=== PATIENT | male | born 1955 | race Caucasian/White ===

== ENCOUNTER → 2016-10-30 | Outpatient (CLI) | payer BC ==
[~2016-10-30] MED LIST: AMLO10TA2 PO; ASCO10004 PO; ATOR10TA9 PO; B CO PO; CA C1TAB62 PO; CELE200C PO; CHOL10003 PO; DOCU100C PO; GING550C PO; GINK120C PO; GLUC-121 PO; HYDR25TA6 PO; KRIL1CAP5 PO; MULT-257 PO; Potassium PO; TRAM50TA2 PO; TURM500C7 PO; UBID30CA9 PO; VALS320T2 PO; blackseed oil PO
[2016-10-30 09:39] LABS: ASPARTATE AMINO TRANSFERASE 19 U/L (15-37); BLOOD UREA NITROGEN 25 mg/dL (7-18)
== END | disposition home or self-care (01) ==
LOC: STAR 08:23 → MERGE 08:30
PROVIDERS: ATTEND Specialist
DX: Z01.818 Encounter for other preprocedural examination (principal); C91.40 Hairy cell leukemia not having achieved remission; J32.2 Chronic ethmoidal sinusitis; J34.2 Deviated nasal septum; J32.0 Chronic maxillary sinusitis
CPT/HCPCS: 36415; 80053; 85025; 93005

== ENCOUNTER 2016-11-04 13:54 | Day surgery (SDC) | payer BC ==
[~2016-11-04] VITALS: Ht 185.4 cm; Wt 130.0 kg
[2016-11-04] MEDS ORDERED: COCAINE TOPICAL SOLN 4%, 4ML ONE ×2 (14:04→15:38)
[2016-11-04] MEDS ORDERED: SODIUM CHLORIDE 0.9% 1,000 ML IV SCH (14:30)
[2016-11-04 14:57] VITALS: BP 130/80
[2016-11-04] MEDS ORDERED: REMIFENTANIL 2 MG ONE (15:05)
[2016-11-04 15:14] VITALS: BP 130/80
[2016-11-04 15:30] VITALS: BP 123/77
[2016-11-04] MEDS ORDERED: LABETALOL 5MG/ML, 20ML ONE (15:32)
[2016-11-04] MEDS ORDERED: ONDANSETRON 2MG/ML, 2ML ONE (15:32)
[2016-11-04] MEDS ORDERED: DEXAMETHASONE 4 MG/ML, 1ML ONE (15:32)
[2016-11-04] MEDS ORDERED: SUCCINYLCHOLINE 20 MG/ML, 10ML ONE (15:32)
[2016-11-04] MEDS ORDERED: PROPOFOL 10 MG/ML, 20ML ONE (15:32)
[2016-11-04] MEDS ORDERED: PROPOFOL 10 MG/ML, 50ML ONE (15:32)
[2016-11-04] MEDS ORDERED: PHENYLEPHRINE 10 MG/ML ONE (15:32)
[2016-11-04] MEDS ORDERED: CEFAZOLIN 1,000 MG ONE (15:32)
[2016-11-04] MEDS ORDERED: LIDOCAINE/PF 1.5%-EPI 1:200K, 30ML ONE (15:37)
[2016-11-04] MEDS ORDERED: EPINEPHRINE 1 MG/ML, 1ML ONE (15:39)
[2016-11-04] MEDS ORDERED: LIDOCAINE/PF 1%, 30ML ONE (15:39)
[2016-11-04] MEDS ORDERED: ONDANSETRON 2MG/ML, 2ML IVPush PRN (16:30)
[2016-11-04] MEDS ORDERED: MEPERIDINE/PF 25MG/0.5ML IVPush PRN (16:30)
[2016-11-04] MEDS ORDERED: hydrALAzine 20 MG/ML, 1ML IV PRN (16:30)
[2016-11-04] MEDS ORDERED: OXYcodone 5 MG/5 ML ORAL.SOL UDC PO PRN (16:30)
[2016-11-04] MEDS ORDERED: ACETAMINOPHEN 325 MG TABLET PO PRN (16:30)
[2016-11-04] MEDS ORDERED: HYDROcodone/APAP 7.5-325MG/15ML UDC PO PRN (16:30)
[2016-11-04] MEDS ORDERED: PROMETHAZINE 25 MG/ML, 1ML IV PRN (16:30)
[2016-11-04] MEDS ORDERED: EPHEDRINE 50 MG/ML, 1ML IVPush PRN (16:30)
[2016-11-04] MEDS ORDERED: MIDAZOLAM 1 MG/ML, 2ML IV PRN (16:30)
[2016-11-04] MEDS ORDERED: REMIFENTANIL 1 MG ONE (16:44)
[2016-11-04] MEDS ORDERED: NEO/BACI/POLY/HC OINT 15GM ONE (17:18)
[2016-11-04] MEDS ORDERED: OXYcodone 5 MG/5 ML ORAL.SOL UDC ONE (17:48)
[2016-11-04] MEDS ORDERED: FENTANYL PF 100 MCG/2ML ONE (17:48)
[2016-11-04] MEDS: FENTANYL PF 100 MCG/2ML IV PRN ×2 (17:51→18:03)
[2016-11-04] MEDS: LABETALOL 5MG/ML, 20ML IV PRN ×2 (18:05→18:23)
[2016-11-04] MEDS ORDERED: HYDROmorphone 1 MG/ML, 1ML ONE (18:12)
[2016-11-04] MEDS: HYDROmorphone 1 MG/ML, 1ML IV PRN ×2 (18:14→18:24)
== END 2016-11-04 20:05 ==
LOC: OR 13:54
PROVIDERS: ATTEND Specialist
DX: J34.2 Deviated nasal septum (principal); J32.2 Chronic ethmoidal sinusitis; J32.0 Chronic maxillary sinusitis; J32.9 Chronic sinusitis, unspecified
CPT/HCPCS: 30520; 31255; 31256; 31276; 31287; 36415; 82962; 86850; 86900; 88304; J0330; J0690; J1100; J1170; J2250; J2370; J2405; J2704; J3010; J7030; P9035; S1090; J0171; J3490

== ENCOUNTER 2016-12-11 10:07 | Inpatient (IN) | payer BC ==
[~2016-12-11] VITALS: Ht 185.4 cm; Wt 126.7 kg
[2016-12-11 12:20] LABS: HEMOGLOBIN 11.8 g/dL (13.7-18.0)
[2016-12-11 12:26] LABS: BLOOD UREA NITROGEN 23 mg/dL (7-18)
[2016-12-11 12:34] LABS: IS PT STATUS REG ER OR PRE ER? YES
[2016-12-11 13:03] LABS: DIFF TOTAL CELLS COUNTED 100 CELL DIFF
[2016-12-11 13:08] LABS: WHITE BLOOD COUNT 1.8 x10^3/uL (3.4-10)
[2016-12-11 13:18] LABS: VERIFY COUNTS? YES
[2016-12-11] MEDS ORDERED: CEFTRIAXONE 1,000 MG ONE (13:21)
[2016-12-11] MEDS ORDERED: AZITHROMYCIN 500 MG in SODIUM CHLORIDE 0.9% 250 ML IV ONE (13:30)
[2016-12-11] MEDS ORDERED: SODIUM CHLORIDE 0.9% 1,000ML IVBOLUS ONE (13:30)
[2016-12-11] MEDS ORDERED: CEFTRIAXONE 1,000 MG IM ONE (13:30)
[2016-12-11] MEDS ORDERED: ONDANSETRON 2MG/ML, 2ML IVPush PRN (15:30)
[2016-12-11] MEDS ORDERED: LABETALOL 5MG/ML, 20ML IVPush PRN (15:30)
[2016-12-11] MEDS ORDERED: ENALAPRILAT 1.25 MG/ML, 2ML IVPush PRN (15:30)
[2016-12-11] MEDS ORDERED: ONDANSETRON ODT 4 MG PO PRN (15:30)
[2016-12-11] MEDS ORDERED: ENOXAPARIN 40 MG/0.4 ML SQ SCH (15:30)
[2016-12-11 15:31] VITALS: BP 132/72
[2016-12-11] MEDS ORDERED: DEXTROSE 4 GM TAB.CHEW PO PRN (16:00)
[2016-12-11] MEDS ORDERED: DEXTROSE 50%, 50ML SYRINGE IVPush PRN (16:00)
[2016-12-11] MEDS ORDERED: GLUCAGON 1 MG IM PRN (16:00)
[2016-12-11] MEDS: CEFTRIAXONE PMX 1GM/50ML 50 ML IV SCH (16:34)
[2016-12-11] MEDS: SODIUM CHLORIDE 0.9% 1,000 ML IV SCH (16:34)
[2016-12-11] MEDS: INSULIN ASPART 100 UNITS/ML, PEN SQ-INSULIN SCH ×2 (18:16→21:35)
[2016-12-11 19:31] VITALS: BP 131/78
[2016-12-11] MEDS: SODIUM CHLORIDE FLUSH 10ML SYR IVF SCH (21:36)
[2016-12-12] MEDS: SODIUM CHLORIDE 0.9% 1,000 ML IV SCH ×3 (02:22→23:32)
[2016-12-12 02:23] VITALS: BP 135/81
[2016-12-12 05:23] LABS: HEMATOCRIT 32.9 % (39.2-51.8)
[2016-12-12 05:25] LABS: BLOOD UREA NITROGEN 18 mg/dL (7-18)
[2016-12-12 05:29] LABS: ASPARTATE AMINO TRANSFERASE 39 U/L (15-37)
[2016-12-12 06:01] LABS: WHITE BLOOD COUNT 1.8 x10^3/uL (3.4-10)
[2016-12-12 06:15] VITALS: BP 134/70
[2016-12-12] MEDS: INSULIN ASPART 100 UNITS/ML, PEN SQ-INSULIN SCH ×4 (07:46→20:18)
[2016-12-12] MEDS: SODIUM CHLORIDE FLUSH 10ML SYR IVF SCH ×2 (08:32→20:18)
[2016-12-12 13:30] VITALS: BP 143/80
[2016-12-12] MEDS: AZITHROMYCIN 500 MG in SODIUM CHLORIDE 0.9% 250 ML IV SCH (13:50)
[2016-12-12] MEDS: CEFTRIAXONE PMX 1GM/50ML 50 ML IV SCH (15:39)
[2016-12-12 19:28] VITALS: BP 156/74
[2016-12-12] MEDS: ACETAMINOPHEN 325 MG TABLET PO PRN (20:12)
[2016-12-13 01:56] VITALS: BP 138/79
[2016-12-13] MEDS: INSULIN ASPART 100 UNITS/ML, PEN SQ-INSULIN SCH ×4 (07:18→21:00)
[2016-12-13] MEDS: SODIUM CHLORIDE 0.9% 1,000 ML IV SCH ×2 (08:42→20:00)
[2016-12-13] MEDS: SODIUM CHLORIDE FLUSH 10ML SYR IVF SCH ×2 (08:43→21:00)
[2016-12-13 08:45] VITALS: BP 146/72
[2016-12-13] MEDS: ACETAMINOPHEN 325 MG TABLET PO PRN (09:58)
[2016-12-13] MEDS ORDERED: ALBUTEROL SULFATE 2.5 MG/3 ML NPPB PRN (11:30)
[2016-12-13] MEDS: AZITHROMYCIN 500 MG in SODIUM CHLORIDE 0.9% 250 ML IV SCH (13:46)
[2016-12-13 14:02] VITALS: BP 146/69
[2016-12-13 14:14] LABS: HEMOGLOBIN 10.5 g/dL (13.7-18.0)
[2016-12-13 14:20] LABS: WHITE BLOOD COUNT 1.3 x10^3/uL (3.4-10)
[2016-12-13] MEDS: CEFTRIAXONE PMX 1GM/50ML 50 ML IV SCH (16:08)
[2016-12-13 19:37] VITALS: BP 156/79
[2016-12-13] MEDS: ALBUTEROL SULFATE 2.5 MG/3 ML NPPB PRN (19:46)
[2016-12-13] MEDS ORDERED: DEXTROSE 4 GM TAB.CHEW PO PRN (20:00)
[2016-12-13] MEDS ORDERED: DEXTROSE 50%, 50ML SYRINGE IVPush PRN (20:00)
[2016-12-13] MEDS ORDERED: ONDANSETRON 2MG/ML, 2ML IVPush PRN (20:00)
[2016-12-13] MEDS ORDERED: ENALAPRILAT 1.25 MG/ML, 2ML IVPush PRN (20:00)
[2016-12-13] MEDS ORDERED: LABETALOL 5MG/ML, 20ML IVPush PRN (20:00)
[2016-12-13] MEDS ORDERED: GLUCAGON 1 MG IM PRN (20:00)
[2016-12-14 01:32] VITALS: BP 145/84
[2016-12-14] MEDS: SODIUM CHLORIDE 0.9% 1,000 ML IV SCH ×2 (05:29→16:00)
[2016-12-14 06:45] VITALS: BP 149/78
[2016-12-14] MEDS: INSULIN ASPART 100 UNITS/ML, PEN SQ-INSULIN SCH ×4 (07:35→20:12)
[2016-12-14] MEDS: SODIUM CHLORIDE FLUSH 10ML SYR IVF SCH ×2 (09:00→20:04)
[2016-12-14] MEDS: ALBUTEROL SULFATE 2.5 MG/3 ML NPPB PRN ×2 (09:05→15:51)
[2016-12-14] MEDS: AZITHROMYCIN 250 MG TABLET PO SCH (11:20)
[2016-12-14 13:57] VITALS: BP 131/75
[2016-12-14 19:25] VITALS: BP 149/71
[2016-12-14 19:37] VITALS: BP 129/86
[2016-12-14] MEDS: ACETAMINOPHEN 325 MG TABLET PO PRN (20:12)
[2016-12-15] MEDS: SODIUM CHLORIDE 0.9% 1,000 ML IV SCH (00:52)
[2016-12-15 02:23] VITALS: BP 145/80
[2016-12-15 07:25] VITALS: BP 163/82
[2016-12-15 08:03] LABS: HEMOGLOBIN 10.2 g/dL (13.7-18.0)
[2016-12-15 08:05] LABS: BLOOD UREA NITROGEN 14 mg/dL (7-18)
[2016-12-15 08:06] LABS: WHITE BLOOD COUNT 1.3 x10^3/uL (3.4-10)
[2016-12-15 08:10] LABS: ASPARTATE AMINO TRANSFERASE 45 U/L (15-37)
[2016-12-15] MEDS: INSULIN ASPART 100 UNITS/ML, PEN SQ-INSULIN SCH ×4 (08:17→20:36)
[2016-12-15] MEDS: SODIUM CHLORIDE FLUSH 10ML SYR IVF SCH ×2 (09:00→21:00)
[2016-12-15] MEDS: OMEGA-3/FISH OIL CAPSULE PO SCH (09:52)
[2016-12-15] MEDS: DOCUSATE 100 MG CAPSULE PO SCH ×2 (09:52→20:31)
[2016-12-15] MEDS: VALSARTAN 320 MG TABLET PO SCH (09:52)
[2016-12-15] MEDS: HYDROCHLOROTHIAZIDE 25 MG TABLET PO SCH (09:53)
[2016-12-15] MEDS: MULTIVITAMIN 1 TABLET PO SCH (09:53)
[2016-12-15] MEDS: AZITHROMYCIN 250 MG TABLET PO SCH (09:53)
[2016-12-15] MEDS: AMLODIPINE 5 MG TABLET PO SCH (09:53)
[2016-12-15] MEDS: CHOLECALCIFEROL 1,000 UNIT TABLET PO SCH (09:53)
[2016-12-15] MEDS: ONDANSETRON ODT 4 MG PO PRN (11:52)
[2016-12-15 14:36] VITALS: BP 131/76
[2016-12-15] MEDS ORDERED: VANCOMYCIN PER PHARMACY MC PRN (15:30)
[2016-12-15] MEDS ORDERED: VANCOMYCIN PMX 1GM/200ML 200 ML IV ONE (15:30)
[2016-12-15] MEDS ORDERED: PHARMACOKINETIC MONITORING MC PRN (16:00)
[2016-12-15] MEDS: PIPERACILLIN/TAZO/PMX 3.375GM 50 ML IV SCH ×2 (16:00→21:40)
[2016-12-15] MEDS: VANCOMYCIN 2,000 MG in SODIUM CHLORIDE 0.9% 500 ML IV SCH (17:26)
[2016-12-15] MEDS: ASCORBIC ACID 500 MG TABLET PO SCH (17:33)
[2016-12-15 20:14] VITALS: BP 123/75
[2016-12-15] MEDS: ACETAMINOPHEN 325 MG TABLET PO PRN (20:31)
[2016-12-16 03:45] VITALS: BP 120/76
[2016-12-16] MEDS: PIPERACILLIN/TAZO/PMX 3.375GM 50 ML IV SCH ×4 (03:49→21:54)
[2016-12-16] MEDS: INSULIN ASPART 100 UNITS/ML, PEN SQ-INSULIN SCH ×4 (07:45→20:35)
[2016-12-16] MEDS: ASCORBIC ACID 500 MG TABLET PO SCH ×2 (07:46→16:07)
[2016-12-16 08:00] VITALS: BP 134/75
[2016-12-16] MEDS: OMEGA-3/FISH OIL CAPSULE PO SCH (09:12)
[2016-12-16] MEDS: ONDANSETRON ODT 4 MG PO PRN ×2 (09:12→20:31)
[2016-12-16] MEDS: VALSARTAN 320 MG TABLET PO SCH (09:12)
[2016-12-16] MEDS: HYDROCHLOROTHIAZIDE 25 MG TABLET PO SCH (09:13)
[2016-12-16] MEDS: DOCUSATE 100 MG CAPSULE PO SCH ×2 (09:13→20:31)
[2016-12-16] MEDS: SODIUM CHLORIDE FLUSH 10ML SYR IVF SCH ×2 (09:14→21:02)
[2016-12-16] MEDS: CHOLECALCIFEROL 1,000 UNIT TABLET PO SCH (09:14)
[2016-12-16] MEDS: MULTIVITAMIN 1 TABLET PO SCH (09:14)
[2016-12-16] MEDS: AMLODIPINE 5 MG TABLET PO SCH (09:14)
[2016-12-16] MEDS: VANCOMYCIN 2,000 MG in SODIUM CHLORIDE 0.9% 500 ML IV SCH (10:35)
[2016-12-16 14:00] VITALS: BP 104/55
[2016-12-16] MEDS ORDERED: CEFEPIME 1 GM in DEXTROSE 5% 50 ML IV SCH (17:00)
[2016-12-16] MEDS ORDERED: OMNIPAQUE 350 MG/ML, 100ML BOTTLE ONE (17:32)
[2016-12-16 19:37] VITALS: BP 138/78
[2016-12-17 03:50] VITALS: BP 122/74
[2016-12-17] MEDS: PIPERACILLIN/TAZO/PMX 3.375GM 50 ML IV SCH ×4 (03:58→20:56)
[2016-12-17] MEDS: SODIUM CHLORIDE FLUSH 10ML SYR IVF SCH ×2 (07:40→20:55)
[2016-12-17] MEDS: CHOLECALCIFEROL 1,000 UNIT TABLET PO SCH (07:40)
[2016-12-17] MEDS: VALSARTAN 320 MG TABLET PO SCH (07:40)
[2016-12-17] MEDS: OMEGA-3/FISH OIL CAPSULE PO SCH (07:40)
[2016-12-17] MEDS: LACTOBACILLUS CHEW TABLET PO SCH ×3 (07:41→20:56)
[2016-12-17] MEDS: DOCUSATE 100 MG CAPSULE PO SCH ×2 (07:41→20:56)
[2016-12-17] MEDS: AMLODIPINE 5 MG TABLET PO SCH (07:41)
[2016-12-17] MEDS: HYDROCHLOROTHIAZIDE 25 MG TABLET PO SCH (07:41)
[2016-12-17] MEDS: ASCORBIC ACID 500 MG TABLET PO SCH ×2 (07:41→16:04)
[2016-12-17] MEDS: MULTIVITAMIN 1 TABLET PO SCH (07:41)
[2016-12-17] MEDS: INSULIN ASPART 100 UNITS/ML, PEN SQ-INSULIN SCH ×4 (07:45→20:57)
[2016-12-17 08:13] VITALS: BP 129/76
[2016-12-17 13:37] VITALS: BP 116/65
[2016-12-17 19:30] VITALS: BP 117/69
[2016-12-17] MEDS: GUAIFENESIN ER 600 MG TABLET PO SCH (20:56)
[2016-12-18 00:53] VITALS: BP 119/78
[2016-12-18] MEDS: PIPERACILLIN/TAZO/PMX 3.375GM 50 ML IV SCH ×4 (03:30→20:37)
[2016-12-18 05:12] LABS: HEMATOCRIT 30.2 % (39.2-51.8); HEMOGLOBIN 10.1 g/dL (13.7-18.0)
[2016-12-18 05:15] LABS: ASPARTATE AMINO TRANSFERASE 90 U/L (15-37); BLOOD UREA NITROGEN 17 mg/dL (7-18)
[2016-12-18 05:43] LABS: WHITE BLOOD COUNT 1.3 x10^3/uL (3.4-10)
[2016-12-18 07:20] VITALS: BP 118/70
[2016-12-18] MEDS: INSULIN ASPART 100 UNITS/ML, PEN SQ-INSULIN SCH ×4 (07:41→20:40)
[2016-12-18] MEDS: LACTOBACILLUS CHEW TABLET PO SCH ×3 (07:42→20:37)
[2016-12-18] MEDS: ASCORBIC ACID 500 MG TABLET PO SCH ×2 (07:42→16:50)
[2016-12-18] MEDS: OMEGA-3/FISH OIL CAPSULE PO SCH (07:42)
[2016-12-18] MEDS: VALSARTAN 320 MG TABLET PO SCH (07:42)
[2016-12-18] MEDS: DOCUSATE 100 MG CAPSULE PO SCH ×2 (07:42→20:37)
[2016-12-18] MEDS: CHOLECALCIFEROL 1,000 UNIT TABLET PO SCH (07:42)
[2016-12-18] MEDS: AMLODIPINE 5 MG TABLET PO SCH (07:42)
[2016-12-18] MEDS: MULTIVITAMIN 1 TABLET PO SCH (07:42)
[2016-12-18] MEDS: GUAIFENESIN ER 600 MG TABLET PO SCH ×2 (07:43→20:37)
[2016-12-18] MEDS: HYDROCHLOROTHIAZIDE 25 MG TABLET PO SCH (07:43)
[2016-12-18] MEDS: SODIUM CHLORIDE FLUSH 10ML SYR IVF SCH ×2 (07:44→20:41)
[2016-12-18 14:11] VITALS: BP 116/72
[2016-12-18] MEDS: metFORMIN 500 MG TABLET PO SCH (16:50)
[2016-12-18 19:39] VITALS: BP 107/67
[2016-12-19 01:24] VITALS: BP 120/73
[2016-12-19] MEDS: PIPERACILLIN/TAZO/PMX 3.375GM 50 ML IV SCH ×2 (04:37→09:48)
[2016-12-19 07:47] VITALS: BP 128/84
[2016-12-19] MEDS: INSULIN ASPART 100 UNITS/ML, PEN SQ-INSULIN SCH ×4 (07:55→21:11)
[2016-12-19] MEDS: ASCORBIC ACID 500 MG TABLET PO SCH ×2 (07:56→16:23)
[2016-12-19] MEDS: metFORMIN 500 MG TABLET PO SCH ×2 (07:56→16:23)
[2016-12-19] MEDS: CHOLECALCIFEROL 1,000 UNIT TABLET PO SCH (07:56)
[2016-12-19] MEDS: LACTOBACILLUS CHEW TABLET PO SCH ×3 (07:57→21:10)
[2016-12-19] MEDS: GUAIFENESIN ER 600 MG TABLET PO SCH ×2 (07:57→21:10)
[2016-12-19] MEDS: OMEGA-3/FISH OIL CAPSULE PO SCH (07:57)
[2016-12-19] MEDS: HYDROCHLOROTHIAZIDE 25 MG TABLET PO SCH (07:57)
[2016-12-19] MEDS: MULTIVITAMIN 1 TABLET PO SCH (07:57)
[2016-12-19] MEDS: DOCUSATE 100 MG CAPSULE PO SCH ×2 (07:57→21:10)
[2016-12-19] MEDS: VALSARTAN 320 MG TABLET PO SCH (07:57)
[2016-12-19] MEDS: AMLODIPINE 5 MG TABLET PO SCH (07:57)
[2016-12-19] MEDS: SODIUM CHLORIDE FLUSH 10ML SYR IVF SCH ×2 (07:58→21:11)
[2016-12-19 14:00] VITALS: BP 111/74
[2016-12-19] MEDS: PIPERACILLIN/TAZO/PMX 4.5GM 100 ML IV SCH ×2 (14:13→21:10)
[2016-12-19 19:06] LABS: ADENOVIRUS PCR Negative (Negative); INFLUENZA A PCR Negative (Negative); INFLUENZA B PCR Negative (Negative); METAPNEUMOVIRUS PCR Negative (Negative); PARAINFLUENZA 1 PCR Negative (Negative); PARAINFLUENZA 2 PCR Negative (Negative); PARAINFLUENZA 3 PCR Negative (Negative); RESP SYNCYTIAL VIRUS A PCR Negative (Negative); RESP SYNCYTIAL VIRUS B PCR Negative (Negative); RHINOVIRUS PCR Negative (Negative)
[2016-12-19 20:37] VITALS: BP 109/70
[2016-12-20 01:38] VITALS: BP 100/64
[2016-12-20] MEDS: PIPERACILLIN/TAZO/PMX 4.5GM 100 ML IV SCH (04:31)
[2016-12-20 07:16] VITALS: BP 124/72
[2016-12-20] MEDS: INSULIN ASPART 100 UNITS/ML, PEN SQ-INSULIN SCH ×2 (08:05→12:24)
[2016-12-20] MEDS: HYDROCHLOROTHIAZIDE 25 MG TABLET PO SCH (08:07)
[2016-12-20] MEDS: metFORMIN 500 MG TABLET PO SCH (08:07)
[2016-12-20] MEDS: CHOLECALCIFEROL 1,000 UNIT TABLET PO SCH (08:07)
[2016-12-20] MEDS: LACTOBACILLUS CHEW TABLET PO SCH (08:07)
[2016-12-20] MEDS: MULTIVITAMIN 1 TABLET PO SCH (08:07)
[2016-12-20] MEDS: AMLODIPINE 5 MG TABLET PO SCH (08:07)
[2016-12-20] MEDS: GUAIFENESIN ER 600 MG TABLET PO SCH (08:07)
[2016-12-20] MEDS: ASCORBIC ACID 500 MG TABLET PO SCH (08:08)
[2016-12-20] MEDS: OMEGA-3/FISH OIL CAPSULE PO SCH (08:08)
[2016-12-20] MEDS: VALSARTAN 320 MG TABLET PO SCH (08:08)
[2016-12-20] MEDS: SODIUM CHLORIDE FLUSH 10ML SYR IVF SCH (08:11)
[2016-12-20] MEDS: DOCUSATE 100 MG CAPSULE PO SCH (08:12)
[2016-12-20] MEDS ORDERED: ERTAPENEM 1 GM in SODIUM CHLORIDE 0.9% 50 ML IV ONE (11:30)
[2016-12-20] MEDS ORDERED: METF500T PO (12:31)
[2016-12-20] MEDS ORDERED: INSU100I18 SQ-INSULIN (12:31)
[2016-12-20 12:41] VITALS: BP 120/76
== END 2016-12-20 15:09 | disposition home or self-care (01) | DRG 194 ==
LOC: ED 13:37 → EDIP 13:38 → ED 14:23 → 3NW 14:50
PROVIDERS: ADMIT Internal Medicine; ATTEND Internal Medicine
PROC: 02HV33Z Insertion of Infusion Device into Superior Vena Cava, Percutaneous Approach (ICD-10-PCS; principal; 2016-12-19)
PROC: B548ZZA Ultrasonography of Superior Vena Cava, Guidance (ICD-10-PCS; 2016-12-19)
DX: J15.9 Unspecified bacterial pneumonia (principal); C91.40 Hairy cell leukemia not having achieved remission; E11.65 Type 2 diabetes mellitus with hyperglycemia; E66.9 Obesity, unspecified; G47.33 Obstructive sleep apnea (adult) (pediatric); I10 Essential (primary) hypertension; J32.9 Chronic sinusitis, unspecified; R01.1 Cardiac murmur, unspecified; D89.9 Disorder involving the immune mechanism, unspecified; R50.81 Fever presenting with conditions classified elsewhere; Z79.4 Long term (current) use of insulin; Z68.36 Body mass index [BMI] 36.0-36.9, adult; Z88.2 Allergy status to sulfonamides; Z98.52 Vasectomy status
CPT/HCPCS: 36415; 36569; 70487; 71010; 76937; 77001; 80048; 80053; 82040; 82962; 83036; 83605; 83880; 84145; 84484; 85025; 85610; 85651; 86140; 87040; 87081; 87633; 93005; 94640; 96365; 96372; J0456; J0696; J1335; J1815; J2543; J3370; J7613; Q0162; Q9967; C1751; J7030; J7040; J7050